=== PATIENT | female | born 2000 | race African-American/Black ===

== ENCOUNTER 2019-02-14 16:07 | Emergency (ER) | payer OTHER ==
[2019-02-14] MEDS ORDERED: Ibuprofen 200 MG TAB ONE (16:24)
== END 2019-02-14 17:18 | disposition home or self-care (01) ==
LOC: ERS 16:07
DX: J10.1 Influenza due to other identified influenza virus with other respiratory manifestations (principal); F32.9 Major depressive disorder, single episode, unspecified; F41.9 Anxiety disorder, unspecified
CPT/HCPCS: 87804; 99283

== ENCOUNTER 2019-04-09 11:00 | Emergency (ER) | payer BC, OTHER ==
[2019-04-09] MEDS ORDERED: Dexamethasone 10 MG/ML VIAL ONE (12:24)
== END 2019-04-09 13:05 | disposition home or self-care (01) ==
LOC: ERS 11:00
DX: J02.8 Acute pharyngitis due to other specified organisms (principal); B97.89 Other viral agents as the cause of diseases classified elsewhere; F32.9 Major depressive disorder, single episode, unspecified; F41.9 Anxiety disorder, unspecified
CPT/HCPCS: 87081; 87430; 87804; 99283; J1100

== ENCOUNTER 2020-03-21 17:58 | Emergency (ER) | payer BC ==
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
[2020-03-21] MEDS ORDERED: diphenhydrAMINE 50 MG/ML VIAL ONE (18:54)
[2020-03-21] MEDS ORDERED: Acetaminophen 325 MG TAB ONE (18:54)
[2020-03-21] MEDS ORDERED: Metoclopramide HCl 10 MG/2 ML VIAL ONE (18:54)
[2020-03-21] MEDS ORDERED: Dexamethasone 4 mg/ml Vial ONE (18:54)
== END 2020-03-21 21:33 | disposition home or self-care (01) ==
LOC: ERS 17:58
DX: S06.0X9A Concussion with loss of consciousness of unspecified duration, initial encounter (principal); V49.9XXA Car occupant (driver) (passenger) injured in unspecified traffic accident, initial encounter
CPT/HCPCS: 70450; 72125; 96365; 96375; J1100; J1200; J2765